=== PATIENT | female | born 1925 | race Caucasian/White ===

== ENCOUNTER 2016-04-23 13:10 | Observation (INO) | payer MEDICARE, MEDICAID ==
[~2016-04-23 13:10] MED LIST: ACET500C PO; ACET650T12 PO; ASPI81TA85 PO; CALC600T3 PO; EYECAP PO; FISH1000 PO; FISH300C PO; HYDR200T3 PO; LEVO125T3 PO; LIDO1OIN2 TOP; LIDO5OI TOP; LUTE6TAB2 PO; Meclizine Hcl PO; OCUVTA PO; PERC5TAB6 PO; SYST0.3G OP; SYST0.4D2 OD; SYST0.4D2 OU; SYSTSOL8 OP; SYSTSOL8 OS; TRAM50TA2 PO; TYLE325T5 PO; VITA100037 PO; VITA500T88 PO
[2016-04-23] MEDS ORDERED: ONDANSETRON 4MG/2ML VIAL (J2405) As Ordered ONE ×2 (13:47→17:04)
[2016-04-23] MEDS ORDERED: MORPHINE 2 MG/ML 1ML SYRINGE As Ordered ONE ×3 (13:47→17:04)
[2016-04-23 14:17] LABS: INR 0.96
[2016-04-23 14:26] LABS: ALBUMIN 3.9 GM/DL (3.2-5.2); ALBUMIN/GLOBULIN RATIO 1.34 (1.00-1.93); ALKALINE PHOSPHATASE 104 U/L (45-117); ALT/SGPT 10 U/L (12-78); ANION GAP 9 MEQ/L (8-16); AST/SGOT 13 U/L (15-37); BILIRUBIN,DIRECT 0.3 MG/DL (0.0-0.2); BILIRUBIN,TOTAL 1.2 MG/DL (0.2-1.0); BLOOD UREA NITROGEN 22 MG/DL (7-18); CALCIUM LEVEL 9.6 MG/DL (8.8-10.2); CARBON DIOXIDE LEVEL 30 MEQ/L (21-32); CHLORIDE LEVEL 100 MEQ/L (98-107); CREATININE FOR GFR 0.53 MG/DL (0.55-1.02); GLOMERULAR FILTRATION RATE > 60.0 (>32); GLUCOSE, FASTING 101 MG/DL (83-110); POTASSIUM SERUM 4.7 MEQ/L (3.5-5.1); SODIUM LEVEL 139 MEQ/L (136-145); TOTAL PROTEIN 6.8 GM/DL (6.4-8.2)
[2016-04-23 14:33] LABS: FREE T4 1.44 NG/DL (0.76-1.46)
[2016-04-23 14:49] LABS: BASO % 0.3 % (0.0-1.0); EOS # 1.3 K/mm3 (0.0-0.50); EOS % 24.6 % (0.0-3.0); LARGE UNSTAINED CELL # 0.1 K/mm3 (0.0-0.4); LARGE UNSTAINED CELL % 1.4 % (0.0-4.0); LYMPH # 0.8 K/mm3 (1.5-4.5); LYMPH % 15.3 % (24.0-44.0); MEAN CORPUSCULAR HEMOGLOBIN 28.3 pg (27.0-33.0); MEAN CORPUSCULAR HGB CONC 34.8 g/dl (32.0-36.5); MEAN CORPUSCULAR VOLUME 81.3 fl (80.0-96.0); MONO # 0.3 K/mm3 (0.0-0.8); MONO % 6.4 % (0.0-5.0); NEUTROPHILS # 2.7 K/mm3 (1.8-7.7); NEUTROPHILS % 52.1 % (36.0-66.0); PLATELET COUNT, AUTOMATED 118 k/mm3 (150-450); RED CELL DISTRIBUTION WIDTH 13.8 % (11.5-14.5); WHITE BLOOD COUNT 5.1 K/mm3 (4.0-10.0)
[2016-04-23] MEDS ORDERED: ZOSYN 3.375 GM VIAL (J2543) As Ordered ONE (15:13)
[2016-04-23] MEDS ORDERED: GASTROGRAFIN SOLUTION 30ML (Q9963) As Ordered ONE (15:13)
--- NOTE | 2016-04-23 16:01 | REP ---
Abdominal series: Four views. History: Abdominal pain. Findings: Upright chest radiograph demonstrates aortic valve replacement. EKG monitoring electrodes are seen. There is no evidence of infiltrate or free subdiaphragmatic air. Heart is enlarged as before. Supine and upright views of the abdomen demonstrate partial collapse of wedging at T12. There is air and stool in a nondistended colon. No large or small bowel dilation is seen. No significant air fluid level is noted. There are pins in the right hip. Impression: Cardiomegaly postaortic valve replacement. No acute abdominal abnormality. Signed by Franklin Lew MD 04/23/2016 04:03 P
[2016-04-23] MEDS ORDERED: ISOVUE-370 76% 100ML VIAL (Q9967) As Ordered ONE (16:39)
--- NOTE | 2016-04-23 19:19 | CR ---
DATE OF CONSULTATION: 04/23/2016 REASON FOR CONSULTATION: Abdominal pain. HISTORY OF PRESENT ILLNESS: The patient is an 89-year-old female who has had some chronic back pain issues, as well as osteoarthritis of numerous areas including her back, hips, knees, etc. She has had attempted colonoscopies by Dr. Zamorano in the past. Unfortunately, because of significant diverticulosis was not able to complete this; however, did have some followup barium enemas and those have been done a few years ago showing diverticulosis with a redundant colon but no evidence of masses or lesions. The patient presents today because of what appears to be generalized malaise, generalized pain, discomfort, and they were concerned at the sisters' house whether there was some element of diverticulosis or diverticulitis. The patient presents here to the emergency room with a normal white count 5.1, not anemic and with a CT scan which shows some diverticulosis, stool throughout the colon, and somewhat distended bladder. She does have when I feel is probably developing portal hypertension with some very large splenic varices/perigastric varices. There may be some edema in the gallbladder fossa which may be related to this portal hypertension. Her abdominal pain she describes is all across her abdomen, but mostly her back that is bothering her more. She has not had any acholic stools. No bilirubinuria, no evidence of pancreatitis. PAST MEDICAL HISTORY: Her past medical history is significant for history of dementia, history of hypothyroidism, history of rheumatoid arthritis, history of humerus fracture, hip fracture, and also chronic back pain discomfort. MEDICATIONS: Levothyroxine, hydroxychloroquine, some bowel care, calcium and multivitamins. PHYSICAL EXAMINATION: GENERAL: Her physical exam reveals a very emaciated 89-year-old who looks stated age. HEENT: Is unremarkable. LUNGS: Clear anteriorly. HEART: Regular. ABDOMEN: Softly distended. She has some mild discomfort and tenderness throughout but this is not severe and not rebound. No guarding. EXTREMITIES: Warm, well-perfused. Has obvious changes with rheumatoid arthritis of her hands bilaterally. IMPRESSION AND PLAN: Abdominal pain may be secondary to some mild constipation issues, may have been from some urinary retention issues. She has a Ellsworth catheter in place and she seems "more comfortable" at this point. It is hard to know if this is radiation of pain from some other etiology, i.e., back, but she definitely has some amount of constipation at this point, and aggressive bowel regime is probably reasonable. I would recommend followup lab work in the morning. You can start her on a clear liquid diet now and progress it as tolerated over the ensuing 24 hours. Otherwise, no surgical intervention is necessary at this time. Unfortunately with her developing portal hypertension with her gallstones present, if she develops an episode of acute cholecystitis in the future I would recommend percutaneous drainage at most and would not recommend operative intervention for this. Also does increase her risk for operative intervention for an intra-abdominal process.
[2016-04-23] MEDS ORDERED: ACET650S3 PR (19:47)
[2016-04-23] MEDS ORDERED: APAP325T PO (19:47)
[2016-04-23] MEDS ORDERED: MILKSUS PO (19:47)
[2016-04-23] MEDS ORDERED: SYST1SOL OU (19:47)
[2016-04-23] MEDS ORDERED: LORT5TAB PO (19:47)
[2016-04-23] MEDS ORDERED: PROC5TA PO (19:47)
[2016-04-23] MEDS ORDERED: ENEMENE6 PR (19:47)
[2016-04-23] MEDS ORDERED: REST0.05 OU (19:47)
[2016-04-23] MEDS ORDERED: VITA200016 PO (19:47)
[2016-04-23] MEDS ORDERED: AMOX500C PO (19:47)
[2016-04-23] MEDS ORDERED: LEVO137T2 PO (19:47)
[2016-04-23] MEDS ORDERED: DULC10SU2 PR (19:47)
[2016-04-23] MEDS ORDERED: ACETAMINOPHEN TAB 650MG DOSE (2X325MG) PO PRN (20:30)
[2016-04-23] MEDS ORDERED: ONDANSETRON 4MG/2ML VIAL (J2405) IV PRN (20:30)
[2016-04-23] MEDS ORDERED: NORCO, ANEXSIA 5/325MG TABLET (HYDROcodone/ACETAMINOPHEN) PO PRN (20:30)
[2016-04-23] MEDS ORDERED: LIDOCAINE 5% OINT 30 GM TOP PRN (20:30)
[2016-04-23] MEDS ORDERED: ONDANSETRON 4 MG TAB (S0181) PO PRN (20:30)
--- NOTE | 2016-04-23 20:53 | HPEPDOC ---
Medical History and Physical Date of Admission 04/23/2016 History and Physical HISTORY AND PHYSICAL Date of admission: 04/23/2016 PCP: Unknown Chief complaint: Abdominal pain HPI: 89-year-old female with irritable bowel syndrome, hypothyroidism, dementia , subdural hematoma in 2014, history of aortic valve replacement, rheumatoid arthritis who presented from [facility] with abdominal pain. The patient has difficulty giving a chronologic history. However, she is able to tell me that she has had "heavy and tight pain" for some time now. Initially she tells me it was for weeks, but later she told me was for years. She states that it's located in her stomach and her lower back, and she notes that her stomach has been getting bigger. She is not sure when her last bowel movement was, but she knows it is been a while. She says it hurts when she pulls her clothes on. Most of her history is obtained through chart review, as well as conversation with the other sister that was present at the bedside, as the patient's baseline dementia makes it difficult for her to participate in the interview. Past medical history: Irritable bowel syndrome, hypothyroidism, dementia, subdural hematoma in 2014, rheumatoid arthritis Past surgical history: Aortic valve replacement, appendectomy, tonsillectomy, lumbar laminectomy Family history: Unknown Social history: The patient is a [employer]. She currently lives at [facility]. She does not drink, smoke, or use any drugs. Allergies: No known drug allergies Review of systems: The patient was not able to participate in a full review of systems secondary to her dementia. She does report abdominal and back pain as mentioned above. She also reports abdominal distention. Home meds: See below Physical exam: Vital signs: Blood pressure 109/60, HR 81, temperature 97.8, O2 sat 96% on 2 L, RR 16 Gen.: awake, alert, no acute distress Eyes: Extraocular movements intact, normal sclera ENT: Moist mucous membranes Cardiovascular: RRR, no murmurs rubs or gallops Lungs: clear to auscultation bilaterally, no rales, rhonchi, or wheeze Abdomen: Soft, normal BS, distended, diffuse TTP Extremities: No peripheral edema Neuro: alert and oriented to person only; knows she is somewhere where doctors help people but didn't know it was a hospital, thinks it is the "year after last year," normal speech, no focal deficits; per the sister with her, she is at her baseline mental status Psych: Normal mood with congruent affect Labs and radiology: See below CBC, BMP, coags, lipase are within normal limits TSH is high, but free T4 is within normal limits. T bili 1.2 CT of the abdomen and pelvis shows portal hypertension with varices, cholelithiasis, a fatty infiltrate of the liver, left colonic diverticulosis Assessment and plan: 89-year-old female with irritable bowel syndrome, hypothyroidism, dementia, subdural hematoma in 2015, history of aortic valve replacement, rheumatoid arthritis who presented from [facility] with abdominal pain. She is admitted with constipation. 1. Abdominal pain and constipation: CT of the abdomen and pelvis does not reveal any acute problems. The patient was evaluated by Dr. Melendez in the ER, he feels that she does not have a surgical abdomen, and needs a really good bowel cleanout. I will start her on MiraLAX and Colace, as well as a gallon of GoLYTELY. She'll have a clear liquid diet with IV fluids. 2. Hypothyroidism: Continue home Synthroid 3. Rheumatoid arthritis: Continue home Plaquenil 4. Dementia: The patient is oriented only to self. Per the sister who is at the bedside, this is her baseline mental status. 5. History of aortic valve replacement: Continue home aspirin. DVT prophylaxis: SCDs Dispo: Place in observation on the service of Dr. Morley Vital Signs see above Laboratory Data Labs 24H Laboratory Tests 2 04/23/16 13:56: Activated Partial Thromboplast Time 23.0L, Aspartate Amino Transf (AST/SGOT) 13L , Alanine Aminotransferase (ALT/SGPT) 10L, Alkaline Phosphatase 104, Total Bilirubin 1.2H, Direct Bilirubin 0.3H, Albumin 3.9, Albumin/Globulin Ratio 1.34 , Anion Gap 9, Calcium Level 9.6, Free Thyroxine 1.44, Glomerular Filtration Rate > 60.0, Lipase 84, Prothromb Time International Ratio 0.96, Prothrombin Time 12.9, Thyroid Stimulating Hormone (TSH) 7.270H, Total Protein 6.8 04/23/16 14:38: White Blood Count 5.1, Red Blood Count 4.80, Hemoglobin 13.6, Hematocrit 39.1, Mean Corpuscular Volume 81.3, Mean Corpuscular Hemoglobin 28.3, Mean Corpuscular Hemoglobin Concent 34.8, Red Cell Distribution Width 13.8, Platelet Count 118L, Neutrophils (%) (Auto) 52.1, Lymphocytes (%) (Auto) 15.3L, Monocytes (%) (Auto) 6.4H, Eosinophils (%) (Auto) 24.6H, Basophils (%) (Auto) 0.3, Neutrophils # (Auto) 2.7, Lymphocytes # (Auto) 0.8L, Monocytes # (Auto) 0.3 , Eosinophils # (Auto) 1.3H, Basophils # (Auto) 0.0, Large Unclassified Cells # 0.1, Large Unclassified Cells % 1.4 CBC/BMP Laboratory Tests 04/23/16 13:56 04/23/16 14:38 Red Blood Count 4.80, Mean Corpuscular Volume 81.3, Mean Corpuscular Hemoglobin 28.3, Mean Corpuscular Hemoglobin Concent 34.8, Red Cell Distribution Width 13.8 , Neutrophils (%) (Auto) 52.1, Lymphocytes (%) (Auto) 15.3 L, Monocytes (%) ( Auto) 6.4 H, Eosinophils (%) (Auto) 24.6 H, Basophils (%) (Auto) 0.3, Neutrophils # (Auto) 2.7, Lymphocytes # (Auto) 0.8 L, Monocytes # (Auto) 0.3, Eosinophils # (Auto) 1.3 H, Basophils # (Auto) 0.0 Home Medications Scheduled (Systane Gel 0.4-0.3 %) 1 Rodney Rodney 1 RODNEY OD QID (Restasis) 0.05 % Emu 1 DROP OU BID Ascorbic Acid (Vitamin C) 500 Mg Tab 500 MG PO DAILY Aspirin (Aspir-81) 81 Mg Tab 81 MG PO DAILY Calcium Carbonate (Calcium Carbonate) 600 Mg Tab 600 MG PO BID Fish Oil (Fish Oil) 1,000 Mg Cap 1,000 MG PO DAILY Hydroxychloroquine Sulfate (Hydroxychloroquine Sulfat) 200 Mg Tab 200 MG PO DAILY Levothyroxine Sodium (Synthroid) 137 Mcg Tab 137 MCG PO DAILY Multivitamins (I-Joselyn) 1 Tab Tab 1 TAB PO BID Polyethylene Glycol (Systane 0.4-0.3 %) 15 Ml Mally 1 DROP OU QID Vegetable Enzyme (Lutein) 6 Mg Tab 6 MG PO BID Vitamin D (Vitamin D) 2,000 Unit Cap 2,000 UNIT PO DAILY Scheduled PRN (Lortab 5-325 mg) 1 Tab Tab 1 TAB PO Q4H PRN PRN PAIN (Enema Disposable) 1 Paul Paul 1 PAUL OR DAILY PRN PRN CONSTIPATION Acetaminophen (Apap) 325 Mg Tab 650 MG PO Q4H PRN PRN PAIN Acetaminophen (Acetaminophen) 650 Mg Sup 650 MG OR Q4H PRN PRN PAIN OR FEVER Amoxicillin (Amoxicillin) 500 Mg Cap 2,000 MG PO PRN PRN PRN dental visits Bisacodyl (Dulcolax) 10 Mg Sup 10 MG OR DAILY PRN PRN CONSTIPATION Lidocaine HCl (Lidocaine 5% Ointment) 1 Dose/35.44 Gm Oint 1 DOSE TOP DAILY PRN PRN PAIN APPLIED TO RIGHT SHOULDER Milk Of Magnesia (Milk of Magnesia) 1,200 Mg/15 Ml Fannie 30 ML PO DAILY PRN PRN CONSTIPATION Prochlorperazine (Prochlorperazine Maleate) 5 Mg Tab 5 MG PO Q6H PRN PRN NAUSEA Allergies Coded Allergies: No Known Allergies (Unverified , 12/16/14) AZALIA GALINDO Apr 23, 2016 20:53
[2016-04-23] MEDS ORDERED: GOLYTELY SOLN 4000 ML BTL PO ONE (22:30)
[2016-04-23 22:35] VITALS: BP 115/71
[2016-04-23] MEDS: DOCUSATE SODIUM 100 MG CAP PO SCH (23:33)
[2016-04-23] MEDS: OCUVITE 1 TAB PO SCH (23:33)
[2016-04-23] MEDS: NS 1,000 ML IV SCH (23:33)
[2016-04-23] MEDS: MIRALAX *UNIT DOSE* 17GM PACKET PO SCH (23:36)
[2016-04-24 05:32] LABS: BASO % 0.1 % (0.0-1.0); EOS # 0.5 K/mm3 (0.0-0.50); EOS % 11.1 % (0.0-3.0); LARGE UNSTAINED CELL # 0.1 K/mm3 (0.0-0.4); LARGE UNSTAINED CELL % 1.8 % (0.0-4.0); LYMPH # 0.4 K/mm3 (1.5-4.5); LYMPH % 9.4 % (24.0-44.0); MEAN CORPUSCULAR HEMOGLOBIN 27.5 pg (27.0-33.0); MEAN CORPUSCULAR HGB CONC 33.6 g/dl (32.0-36.5); MEAN CORPUSCULAR VOLUME 82.1 fl (80.0-96.0); MONO # 0.4 K/mm3 (0.0-0.8); MONO % 9.1 % (0.0-5.0); NEUTROPHILS % 68.6 % (36.0-66.0); PLATELET COUNT, AUTOMATED 116 k/mm3 (150-450); RED CELL DISTRIBUTION WIDTH 13.9 % (11.5-14.5); WHITE BLOOD COUNT 4.3 K/mm3 (4.0-10.0)
--- NOTE | 2016-04-24 05:37 | REP ---
CT STUDY OF THE ABDOMEN AND PELVIS WITH IV AND ORAL CONTRAST: History: Diverticulitis. Comparison CT study is from May 24, 2012. CT contrast dose: 100 ml of Isovue 370 is administered intravenously by auto injector. CT findings: Preliminary digital label stamper radiograph shows gas distension of the rectum. There is mild to moderate splenomegaly with the spleen measuring up to 15.6 cm. The spleen is homogeneous. No focal hepatic lesion is seen. There is some fatty infiltration of the liver. No focal hepatic mass lesion is seen. Two large gallstones are seen in the gallbladder. The pancreas is somewhat atrophic. Mildly dilated main pancreatic duct is seen measuring up to 6.7 mm. No pancreatic mass lesion is observed. The splenic vein is prominent and tortuous. Question portal hypertension. The kidneys enhance symmetrically and are morphologically intact. There is moderate stool throughout the colon. No uterine or adnexal abnormality is seen. There are pins in the right hip. Gaseous distension of the rectum is seen. There is left colonic diverticulosis without CT evidence of diverticulitis. No abdominal wall defect is seen. Impression: 1. Splenomegaly with dilated tortuous portal and splenic veins, question portal hypertension. No ascites. 2. Cholelithiasis. 3. Fatty infiltration of the liver. 4. Left colonic diverticulosis. Signed by Franklin Lew MD 04/24/2016 08:32 A
[2016-04-24 05:50] LABS: ALBUMIN 3.4 GM/DL (3.2-5.2); ALBUMIN/GLOBULIN RATIO 1.03 (1.00-1.93); ALKALINE PHOSPHATASE 105 U/L (45-117); ALT/SGPT 11 U/L (12-78); ANION GAP 10 MEQ/L (8-16); AST/SGOT 11 U/L (15-37); BILIRUBIN,TOTAL 1.6 MG/DL (0.2-1.0); BLOOD UREA NITROGEN 19 MG/DL (7-18); CALCIUM LEVEL 8.5 MG/DL (8.8-10.2); CARBON DIOXIDE LEVEL 27 MEQ/L (21-32); CHLORIDE LEVEL 98 MEQ/L (98-107); CREATININE FOR GFR 0.59 MG/DL (0.55-1.02); GLOMERULAR FILTRATION RATE > 60.0 (>32); GLUCOSE, FASTING 118 MG/DL (83-110); MAGNESIUM LEVEL 3.1 MG/DL (1.8-2.4); POTASSIUM SERUM 4.5 MEQ/L (3.5-5.1); SODIUM LEVEL 135 MEQ/L (136-145); TOTAL PROTEIN 6.7 GM/DL (6.4-8.2)
[2016-04-24] MEDS ORDERED: LEVOTHYROXINE 0.137 MG TAB (137MCG) PO SCH (06:00)
[2016-04-24 08:00] VITALS: BP 96/54
[2016-04-24] MEDS ORDERED: VITAMIN D 1,000 INTERNATIONAL UNITS TABLET PO SCH (09:00)
[2016-04-24] MEDS ORDERED: HYDROXYCHLOROQUINE 200 MG TAB PO SCH (09:00)
[2016-04-24] MEDS ORDERED: ASPIRIN 81 MG ENTERIC TAB PO SCH (09:00)
[2016-04-24] MEDS: MIRALAX *UNIT DOSE* 17GM PACKET PO SCH (09:08)
[2016-04-24] MEDS: DOCUSATE SODIUM 100 MG CAP PO SCH (09:09)
[2016-04-24] MEDS: OCUVITE 1 TAB PO SCH (09:09)
[2016-04-24] MEDS: NS 1,000 ML IV SCH (10:52)
--- NOTE | 2016-04-24 18:15 | DSES ---
DATE OF ADMISSION: 04/23/2016 DATE OF DISCHARGE: 04/24/2016 PRIMARY CARE PHYSICIAN: Unknown. REFERRING PHYSICIAN: None. CONSULTING PHYSICIAN: Stevan Melendez MD CONDITION ON DISCHARGE: Stable. FINAL DIAGNOSIS: 1. Abdominal pain secondary to constipation. PROCEDURES: None. HISTORY OF PRESENT ILLNESS: The patient is an 89-year-old female with a past medical history of irritable bowel syndrome, hypothyroidism, dementia, subdural hematoma, in 2015 history of aortic valve replacement, rheumatoid arthritis, who presented from [facility] with abdominal pain. The patient has difficulty giving a chronological history; however, she is able to tell me that she had heavy and tight pain. In the emergency room, the patient had a Ellsworth catheter placed, which had some relief of her abdominal pain. Upon questioning, the patient still had mild abdominal pain and significant constipation. The patient was admitted for severe constipation and surgery was consulted. HOSPITAL COURSE: 1. Abdominal pain and constipation. CT of the abdomen revealed no acute abnormalities. Surgery was consulted in the emergency room. It was discussed that the patient did not have a surgical abdomen. The patient did have significant constipation. She was given several stool softeners including MiraLAX, Colace and she was given GoLYTELY. The patient had a large volume bowel movement overnight, several episodes this morning. She did not complain of any abdominal pain. 2. Hypothyroidism. Continue with home Synthroid. 3. Rheumatoid arthritis. Continue with Plaquenil. 4. Dementia. The patient is oriented only to herself. 5. History of aortic valve replacement. Continue home aspirin. 6. Deep vein thrombosis (DVT) prophylaxis. Continue with the compression devices. DISCHARGE MEDICATIONS: The patient has been discharged with the following: - acetaminophen 650 mg by mouth every 4 hours as needed for pain - vitamin C 500 mg by mouth daily - aspirin 81 mg by mouth daily - Dulcolax 10 mg per rectum daily as needed for constipation - calcium carbonate 600 mg by mouth twice a day - disposable enema per rectum daily as needed for constipation - fish oil 1000 mg by mouth daily - hydroxychloroquine 200 mg by mouth daily - levothyroxine 137 mcg by mouth daily - lidocaine one dose topically daily as needed for pain - Milk of Magnesium 30 mL by mouth daily as needed for constipation - multivitamins one tab by mouth twice a day - polyethylene glycol one drop in each eye four times a day - Restasis one drop in each twice a day - Systane one drop in each eye four times a day - vegetable enzyme 6 mg by mouth twice a day - vitamin D 2000 units by mouth daily DISCHARGE INSTRUCTIONS: The patient has been advised to followup with her primary care provider within the next one to two weeks. She has been advised to remain compliant with treatment with her medications and return to the emergency room if she experiences any problems. TIME SPENT ON DISCHARGE: 35 minutes.
--- NOTE | 2016-04-25 23:27 | EDDOCDS ---
Nurse's Notes [facility] Name: Sr Hensley Age: 89 yrs Sex: Female : 1925 Arrival Date: 04/23/2016 Time: 13:10 Bed 18 Private MD: Diagnosis: Generalized abdominal pain;Constipation;Intervertebral disc disorders with radiculopathy, lumbar region-right L3 Presentation: 04/23 13:20 Presenting complaint: Patient states: states back pain has been increased for approx 1 jf3 month now. Abdomen feels bloated with pain. Pt unable to recall last BM EMS states: Pt from [facility]. Nurses stating pt having increased back pain and abdominal distention. Acute neurological deficits are not present. Mechanism of Injury: No Mechanism of Injury. Suicide/Homicide risk assessment- the patient denies having any suicidal and/or homicidal ideations and does not present with any other emotional, behavioral or mental health complaints. 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 13:20 Acuity: SEVEN Level 3 jf3 13:20 Method Of Arrival: Ambulance 3 13:28 Transition of care: patient was received from [facility]. jf3 14:10 Adult Sepsis Screening: The patient does not have new or worsening altered mentation. jo3 Patient's respiratory rate is less than 22. Systolic blood pressure is greater than 100. Patient has a qSOFA score of 0- Negative Sepsis Screen. Triage Assessment: 13:28 General: Appears uncomfortable, Behavior is anxious, cooperative. Pain: Location: low jf3 back area and abdomen. Pain: Pain currently is 9 out of 10 on a pain scale. The patient is triaged at the bedside. See Assessment in Nurses Notes section of ED record. Neurological: Level of Consciousness is awake, Oriented to Pt able to give partial date and knows she is in a hospital. Unable to give current date. Historical: - Allergies: no known allergies; - Home Meds: 1. Compazine 5 mg Oral tab 1 tab every 6 hours as needed for Nausea and Vomiting 2. Lignum 5-325 mg Oral tab 1 tab every 4 hours as needed for Pain (Last dose: 04/23/2016 09:10) 3. Restasis 0.05 % ophthalmic dpet 1 drop 2 times per day (Last dose: 04/23/2016 10:06) 4. Systane 0.4-0.3 % ophthalmic drop 1 drop four times a day for Dry Eye (Last dose: 04/23/2016 10:06) 5. amoxicillin 500 mg Oral cap 4 caps prior to dental work 6. Systane Gel 0.3 % ophthalmic gel 1 drop four times a day (Last dose: 04/23/2016 10:06) 7. Vitamin D3 2,000 unit oral tab 1 tab daily (Last dose: 04/23/2016 10:05) 8. calcium oral 600 mg twice a day 1 tab daily (Last dose: 04/23/2016 10:05) 9. levothyroxine 137 mcg Oral tab 1 tab once daily for Hypothyroidism (Last dose: 04/23/2016 10:06) 10. Tylenol 325 mg oral tab 2 tabs every 4 hours as needed 11. acetaminophen 650 mg Rectal supp 1 suppository every 4 hours as needed 12. Milk of Magnesia Oral 10 mL daily as needed for Constipation 13. Dulcolax (bisacodyl) 10 mg Rectal supp 1 suppository daily as needed for Constipation 14. Enema Disposable 19-7 gram/118 mL rectal enem daily as needed for Constipation 15. Ascorbic Acid with Shellie Hips 500 mg oral tab 1 tab daily (Last dose: 04/23/2016 10:05) 16. aspirin 81 mg Oral TbEC 1 tab once daily for CAD (Last dose: 04/23/2016 10:05) 17. Fish Oil 1,000 mg Oral cap 1 cap daily (Last dose: 04/23/2016 10:05) 18. hydroxychloroquine 200 mg oral tab 1 tab once daily (Last dose: 04/23/2016 10:05) 19. lidocaine ointment as needed for right shoulder pain 20. lutein 6 mg oral cap twice a day (Last dose: 04/23/2016 10:05) 21. I-Joselyn 1,000 unit-200 mg-60 unit-2 mg oral tab 1 tab twice a day (Last dose: 04/23/2016 10:05) - PMHx: Cataracts; Irritable bowel syndrome; Thyroid problem; Diverticulosis; DDD L-spine with right L3 nerve root compression; - PSHx: Aortic Valve Replacement, Mechanical; Colonoscopy; Laminectomy. lumbar; Appendectomy; Tonsillectomy; trigger thumb surgery; intraocular lens; colon polypectomies; - The history from nurses notes was reviewed: and elements of the historical information I have obtained differs from that reported to nursing. - Social history: Smoking status: Patient states was never smoker of tobacco. No barriers to communication noted, The patient speaks fluent Irish, Speaks appropriately for age. - : The pt / caregiver states he / she is not on anticoagulants. Home medication list is obtained from the facility JUN. - Hospitalizations: : No recent hospitalization is reported. - Exposure Risk Screening:: None identified. - Immunization history:: All immunizations up-to-date. - Family history: Not pertinent. - Social history:: the patient is a non-smoker, the patient does not drink alcohol. Screenin:27 Screening information is obtained from residence staff. Fall risk: At risk due to age, jo3 immobility, The following interventions are performed due to a positive Fall Risk Screen: Fall Risk is added to Special Handling on the patient Summary Screen. A Fall Risk Bracelet was applied to the patient. Side Rails are placed in the up position. A [employer] is given with instruction to call for help when getting out of bed. Assistance ADL's: Requires assistance with meal preparation, this assistance is provided by residence staff, bathing, assistance is provided by residence staff, dressing, assistance is provided by residence staff, toileting, assistance is provided by residence staff, housework, assistance is provided by residence staff, medication administration, assistance is provided by residence staff. Advance Directives: There is no active DNR order. home support is adequate. 14:01 Abuse/DV Screen: The patient / caregiver reports he/she is: not in a situation that jo3 causes fear, pain or injury. Nutritional screening: No deficits noted. Assessment: 14:01 General: Appears in no apparent distress, Behavior is appropriate for age, cooperative, jo3 pleasant. Neurological: Level of Consciousness is awake, alert, Oriented to person, place. EENT: No deficits noted. Cardiovascular: Rhythm is sinus rhythm No ectopy. Chest pain is denied. Respiratory: Airway is patent Respiratory effort is even, unlabored, Breath sounds are diminished in left posterior lower lobe and right posterior lower lobe. GI: Abdomen is distended, Bowel sounds hypoactive in right upper quadrant, left upper quadrant, right lower quadrant and left lower quadrant Abd is soft X 4 quads Abd is tender to palpation in suprapubic area and left lower quadrant Reports. Derm: Skin is pink, warm & dry. Musculoskeletal: Reports pain in abdomen and low back area radiation to RAYMUNDO LE. 14:16 Reassessment: Pt reported after assessment that she keeps feeling the urge to void and jo3 has not been able to. Bladder scan completed for approx 350cc of urine. Pt attempted to void on bedpan 15 minutes prior to scan. Provider notified . 15:30 General: Appears uncomfortable, Behavior is appropriate for age, cooperative, pleasant. jo3 General: Additional Morphine administered for pain in low back and right leg. Continuing to monitor . Neurological: No deficits noted. Level of Consciousness is awake, alert, Oriented to person, place. Cardiovascular: Rhythm is sinus rhythm Chest pain is denied. Respiratory: Airway is patent Respiratory effort is even, unlabored. Derm: No deficits noted. Skin is pink, warm & dry. 17:00 General: Pt returned from CT. Reports nausea and increased pain. Pt also reports urge ld5 to urinate. Pt medicated per orders for pain and nausea. Pt assisted with bedpan. Pt unable to urinate. Bladder scan results were 424 ml. Provider made aware and verbalized silverio order. 18:30 General: Dr. Melendez in to assess pt. ld5 19:15 General: Appears in no apparent distress, Behavior is appropriate for age. Pain: ko2 Location: abdomen. Neurological: Level of Consciousness is awake. Respiratory: Airway is patent Respiratory effort is even, unlabored. GI: Abdomen is distended, Bowel sounds present X 4 quads. hypoactive in right upper quadrant, left upper quadrant, right lower quadrant and left lower quadrant Abd is soft Abd is tender to palpation. 20:15 General: Appears in no apparent distress, Behavior is appropriate for age. ko2 Neurological: Level of Consciousness is awake. Respiratory: Airway is patent Respiratory effort is even, unlabored. Derm: Skin is pink, warm & dry. 22:09 General: Appears in no apparent distress, Behavior is appropriate for age, cooperative. ko2 Neurological: Level of Consciousness is awake. Respiratory: Airway is patent Respiratory effort is even, unlabored. Derm: Skin is pink, warm & dry. Vital Signs: 13:29 BP 157 / 71 (auto/); jo3 13:30 Weight 51.71 kg; Height 5 ft. 3 in. (160.02 cm); jo3 13:30 BP 157 / 71; Pulse 77; Resp 16; Temp 99.4(TE); Pulse Ox 96% on R/A; Pain 9/10; sew 13:44 Temp 97.8(O); jo3 13:44 BP 143 / 63 (auto/); jo3 13:44 Pulse 78 MON; Pulse Ox 97% ; jo3 13:59 BP 125 / 57 (auto/); jo3 13:59 Pulse 80 MON; Pulse Ox 97% ; jo3 14:29 BP 138 / 67 (auto/); jo3 14:29 Pulse 76 MON; Pulse Ox 98% ; jo3 14:44 BP 111 / 55 (auto/); jo3 14:44 Pulse Ox 98% ; jo3 14:59 BP 112 / 59 (auto/); jo3 14:59 Pulse 78 MON; Pulse Ox 98% ; jo3 15:14 BP 121 / 61 (auto/); jo3 15:14 Pulse Ox 98% ; jo3 15:29 BP 109 / 58 (auto/); jo3 15:29 Pulse 78 MON; Pulse Ox 98% ; jo3 15:44 BP 106 / 68 (auto/); jo3 15:44 Pulse 72 MON; Pulse Ox 99% ; jo3 15:59 BP 107 / 68 (auto/); jo3 15:59 Pulse 72 MON; Pulse Ox 99% ; jo3 16:14 BP 109 / 67 (auto/); jo3 16:14 Pulse 74 MON; Pulse Ox 99% ; jo3 16:29 BP 115 / 63 (auto/); jo3 16:29 Pulse 76 MON; Pulse Ox 99% ; jo3 16:44 BP 126 / 62 (auto/); jo3 16:44 Pulse 78 MON; Pulse Ox 98% ; jo3 17:14 Pulse 72 MON; Pulse Ox 98% ; jo3 17:14 BP 138 / 67 (auto/); Temp 98.1(TE); jo3 17:29 BP 121 / 56 (auto/); jo3 17:29 Pulse 72 MON; Pulse Ox 98% ; jo3 17:44 BP 108 / 57 (auto/); jo3 17:44 Pulse 72 MON; Pulse Ox 97% ; jo3 17:59 BP 103 / 58 (auto/); jo3 17:59 Pulse 74 MON; Pulse Ox 98% ; jo3 18:14 BP 101 / 56 (auto/); jo3 18:14 Pulse 72 MON; Pulse Ox 96% ; jo3 18:29 BP 106 / 55 (auto/); jo3 18:29 Pulse 76 MON; Pulse Ox 96% ; jo3 18:44 BP 110 / 62 (auto/); jo3 18:44 Pulse 78 MON; jo3 18:59 BP 109 / 60 (auto/); ko2 19:00 Pulse 78 MON; Pulse Ox 96% ; ko2 19:14 BP 110 / 58 (auto/); ko2 19:14 Pulse 78 MON; Pulse Ox 96% ; ko2 19:29 BP 156 / 69 (auto/); ko2 19:30 Pulse 84 MON; ko2 19:44 BP 144 / 52 (auto/); ko2 19:45 Pulse 76 MON; ko2 19:59 BP 131 / 63 (auto/); ko2 20:00 Pulse 70 MON; ko2 20:14 BP 120 / 59 (auto/); ko2 20:15 Pulse 72 MON; Pulse Ox 98% ; ko2 20:29 BP 122 / 56 (auto/); ko2 20:29 Pulse 74 MON; Pulse Ox 97% ; ko2 20:44 BP 115 / 55 (auto/); ko2 20:45 Pulse 78 MON; Pulse Ox 97% ; ko2 21:14 BP 130 / 62 (auto/); Pulse 82; Resp 18; Temp 98; Pulse Ox 97% ; Pain 6/10; ko2 13:30 Body Mass Index 20.19 (51.71 kg, 160.02 cm) jo3 Vitals: 13:28 Log In Time N/A - ambulance arrival. jf3 ED Course: 13:11 Patient visited by Ivy Acosta PCA. ar3 13:11 Patient moved to Waiting ar3 13:11 Patient moved to 18 ar3 13:18 Aung Scott MD is Attending Physician. pc 13:24 Triage Initiated jf3 13:27 The patient / caregiver is instructed regarding the plan of care and ED course. jo3 13:31 Patient visited by Marisabel Lock. sew 13:37 Patient visited by Aung Scott MD. pc 13:58 Basic Metabolic Profile Sent. ld5 13:58 CBC with Diff Sent. ld5 13:58 Lipase Sent. ld5 13:58 Liver Profile Sent. ld5 13:58 Partial Thromboplastin Time Sent. ld5 13:58 Prothrombin Time Profile\E\INR Sent. ld5 13:58 Type & Screen Sent. ld5 13:58 Labs drawn. (by ED staff). Sent per order to lab. ld5 14:01 Inserted saline lock: 20 gauge in right forearm. Labs drawn. jo3 14:12 Bladder Scan completed Results: 350cc. jo3 14:37 Patient name changed from M\S\Anat\S\Shellie\S\ to Sr\S\M\S\Shellie. EDMS 14:40 Straight cath inserted 16 Fr. returned clear yellow urine. Patient tolerated well. jo3 14:42 Patient visited by Vasu Ahn,NIHARIKA. jf3 14:52 Patient visited by Zoraida Reveles,NIHARIKA. jo3 14:54 Patient visited by Zoraida Reveles,NIHARIKA. jo3 15:05 [facility] Payment Agreement was scanned into [employer] and attached to record. mpb 16:21 Abdomen, Flat\E\Upright,PA Chest Returned. EDMS 16:35 Patient visited by Aung Scott MD. pc 17:29 Patient visited by Ani Chávez,NIHARIKA. ld5 17:41 Silverio cath inserted 16 Fr. Balloon inflated. To gravity drainage. returned clear yellow ld5 urine. Patient tolerated well. 18:43 Rae Rasmussen is Hospitalizing Provider. pc 18:56 Suni Mccormick,NIHARIKA is Primary Nurse. ko2 19:03 Patient visited by Med Mistry PCA. kb5 21:48 No procedures done that require assistance. ko2 Administered Medications: 04:00 Drug: Ondansetron 4 mg [ondansetron HCl 2 mg/mL intravenous solution (2 mL)] Route: jo3 IVP; Site: right forearm; 14:00 Drug: NS 0.9% 1000 ml [sodium chloride 0.9 % intravenous solution] Route: IV; Rate: 100 jo3 mL/hr; Site: right forearm; 14:02 Drug: morphine 2 mg [morphine 2 mg/mL intravenous cartridge (1 mL)] Route: IVP; Site: jo3 right forearm; 15:20 Drug: Piperacillin-Tazobactam 3.375 grams [piperacillin-tazobactam 3.375 gram jo3 intravenous solution] Route: IVPB; Infused Over: 30 mins; Site: right forearm; 16:20 Follow up: IV Status: Completed infusion jo3 15:25 Drug: Diatrizoate Meglumine & Sodium 10 ml [diatrizoate meglumine and diat.sodium 66 jo3 %-10 % oral solution (10 mL)] Route: PO; 15:28 Drug: morphine 2 mg [morphine 2 mg/mL intravenous cartridge (1 mL)] Route: IVP; Site: jo3 right forearm; 16:00 Drug: Diatrizoate Meglumine & Sodium 10 ml [diatrizoate meglumine and diat.sodium 66 ld5 %-10 % oral solution (10 mL)] Route: PO; 17:18 Drug: morphine 2 mg [morphine 2 mg/mL intravenous cartridge (1 mL)] Route: IVP; Site: ld5 right wrist; 17:18 Drug: Ondansetron 4 mg [ondansetron HCl 2 mg/mL intravenous solution (2 mL)] Route: ld5 IVP; Site: right wrist; Output: 14:42 Urine: 350.00ml (Straight Cath); Total: 350.00ml. jo3 Order Results: Lab Order: Basic Metabolic Profile; SPEC'M 04/23/16 13:56 Test: GLUCOSE, FASTING; Value: 101; Range: 83-110; Units: MG/DL; Status: F Test: BLOOD UREA NITROGEN; Value: 22; Range: 7-18; Abnormal: Above high normal; Units: MG/DL; Status: F Test: CREATININE FOR GFR; Value: 0.53; Range: 0.55-1.02; Abnormal: Below low normal; Units: MG/DL; Status: F Test: GLOMERULAR FILTRATION RATE; Value: > 60.0; Range: >32; Status: F Test: SODIUM LEVEL; Value: 139; Range: 136-145; Units: MEQ/L; Status: F Test: POTASSIUM SERUM; Value: 4.7; Range: 3.5-5.1; Units: MEQ/L; Status: F Test: CHLORIDE LEVEL; Value: 100; Range: 98-107; Units: MEQ/L; Status: F Test: CARBON DIOXIDE LEVEL; Value: 30; Range: 21-32; Units: MEQ/L; Status: F Test: ANION GAP; Value: 9; Range: 8-16; Units: MEQ/L; Status: F Test: CALCIUM LEVEL; Value: 9.6; Range: 8.8-10.2; Units: MG/DL; Status: F Test Note: ; Units are mL/min/1.73 m2 Chronic Kidney Disease Staging per NKF: Stage I & II GFR >=60 Normal to Mildly Decreased Stage III GFR 30-59 Moderately Decreased Stage IV GFR 15-29 Severely Decreased Stage V GFR <15 Very Little GFR Left ESRD GFR <15 on CAREER AND GUIDANCE COUNSELOR Lab Order: CBC with Diff; SPEC'M 04/23/16 14:38 Test: WHITE BLOOD COUNT; Value: 5.1; Range: 4.0-10.0; Units: K/mm3; Status: F Test: RED BLOOD COUNT; Value: 4.80; Range: 4.00-5.40; Units: M/mm3; Status: F Test: HEMOGLOBIN; Value: 13.6; Range: 12.0-16.0; Units: g/dl; Status: F Test: HEMATOCRIT; Value: 39.1; Range: 36.0-47.0; Units: %; Status: F Test: MEAN CORPUSCULAR VOLUME; Value: 81.3; Range: 80.0-96.0; Units: fl; Status: F Test: MEAN CORPUSCULAR HEMOGLOBIN; Value: 28.3; Range: 27.0-33.0; Units: pg; Status: F Test: MEAN CORPUSCULAR HGB CONC; Value: 34.8; Range: 32.0-36.5; Units: g/dl; Status: F Test: RED CELL DISTRIBUTION WIDTH; Value: 13.8; Range: 11.5-14.5; Units: %; Status: F Test: PLATELET COUNT, AUTOMATED; Value: 118; Range: 150-450; Abnormal: Below low normal; Units: k/mm3; Status: F Test: NEUTROPHILS %; Value: 52.1; Range: 36.0-66.0; Units: %; Status: F Test: LYMPH %; Value: 15.3; Range: 24.0-44.0; Abnormal: Below low normal; Units: %; Status: F Test: MONO %; Value: 6.4; Range: 0.0-5.0; Abnormal: Above high normal; Units: %; Status: F Test: EOS %; Value: 24.6; Range: 0.0-3.0; Abnormal: Above high normal; Units: %; Status: F Test: BASO %; Value: 0.3; Range: 0.0-1.0; Units: %; Status: F Test: LARGE UNSTAINED CELL %; Value: 1.4; Range: 0.0-4.0; Units: %; Status: F Test: NEUTROPHILS #; Value: 2.7; Range: 1.8-7.7; Units: K/mm3; Status: F Test: LYMPH #; Value: 0.8; Range: 1.5-4.5; Abnormal: Below low normal; Units: K/mm3; Status: F Test: MONO #; Value: 0.3; Range: 0.0-0.8; Units: K/mm3; Status: F Test: EOS #; Value: 1.3; Range: 0.0-0.50; Abnormal: Above high normal; Units: K/mm3; Status: F Test: BASO #; Value: 0.0; Range: 0.0-0.2; Units: K/mm3; Status: F Test: LARGE UNSTAINED CELL #; Value: 0.1; Range: 0.0-0.4; Units: K/mm3; Status: F Lab Order: Lipase; [facility]' 04/23/16 13:56 Test: LIPASE; Value: 84; Range: 73-393; Units: U/L; Status: F Lab Order: Liver Profile; SPEC' 04/23/16 13:56 Test: AST/SGOT; Value: 13; Range: 15-37; Abnormal: Below low normal; Units: U/L; Status: F Test: ALT/SGPT; Value: 10; Range: 12-78; Abnormal: Below low normal; Units: U/L; Status: F Test: ALKALINE PHOSPHATASE; Value: 104; Range: 45-117; Units: U/L; Status: F Test: BILIRUBIN,TOTAL; Value: 1.2; Range: 0.2-1.0; Abnormal: Above high normal; Units: MG/DL; Status: F Test: BILIRUBIN,DIRECT; Value: 0.3; Range: 0.0-0.2; Abnormal: Above high normal; Units: MG/DL; Status: F Test: TOTAL PROTEIN; Value: 6.8; Range: 6.4-8.2; Units: GM/DL; Status: F Test: ALBUMIN; Value: 3.9; Range: 3.2-5.2; Units: GM/DL; Status: F Test: ALBUMIN/GLOBULIN RATIO; Value: 1.34; Range: 1.00-1.93; Status: F Lab Order: Partial Thromboplastin Time; 04/23/16 13:56 Test: PARTIAL THROMBOPLASTIN TIME; Value: 23.0; Range: 26.6-37.1; Abnormal: Below low normal; Units: SECONDS; Status: F Lab Order: Prothrombin Time Profile\E\INR; 04/23/16 13:56 Test: PROTHROMBIN TIME; Value: 12.9; Range: 12.3-14.5; Units: SECONDS; Status: F Test: INR; Value: 0.96; Status: F Test Note: ; THERAPUTIC HUMAN INR VALUES INDICATIONS NORMAL RANGES PROPHYLAXIS/TREATMENT OF: VENOUS THROMBOSIS 2.0-3.0 PULMONARY EMBOLISM 2.0-3.0 PREVENTION OF SYSTEMIC EMBOLISM FROM: TISSUE HEART VALVES 2.0-3.0 ACUTE MYOCARDIAL INFARCTION 2.0-3.0 VALVULAR HEART DISEASE 2.0-3.0 ATRIAL FIBRILLATION 2.0-3.0 MECHANICAL VALVES(HIGH RISK) 2.5-3.5 RECURRENT MYOCARDIAL INFARCTION 2.5-3.5 Lab Order: Type & Screen; 04/23/16 13:56 Test: BLOOD TYPE; Value: O POS; Status: F Test: AB SCREEN (INDIRECT VINAYAK)GEL; Value: NEGATIVE; Status: F Lab Order: TSH with Free T4; 04/23/16 13:56 Test: THYROID STIMULATING HORMONE; Value: 7.270; Range: 0.358-3.740; Abnormal: Above high normal; Units: uIU/ML; Status: F Test: FREE T4; Value: 1.44; Range: 0.76-1.46; Units: NG/DL; Status: F Radiology Order: Abdomen, Flat\E\Upright,PA Chest Test: Abdomen, Flat\E\Upright,PA Chest REASON FOR EXAMINATION: Abdomen Pain; Abdominal series: Four views.; ; History: Abdominal pain.; ; Findings: Upright chest radiograph demonstrates aortic valve replacement. EKG; monitoring electrodes are seen. There is no evidence of infiltrate or free; subdiaphragmatic air. Heart is enlarged as before.; ; Supine and upright views of the abdomen demonstrate partial collapse of wedging; at T12. There is air and stool in a nondistended colon. No large or small bowel; dilation is seen. No significant air fluid level is noted. There are pins in; the right hip.; ; Impression:; ; Cardiomegaly postaortic valve replacement. No acute abdominal abnormality.; ; ; Signed by; Franklin Lew MD 04/23/2016 04:03 P; Outcome: 18:43 Decision to Hospitalize by Provider. 21:48 Discharge Assessment: Patient awake, alert and oriented x 3. No cognitive and/or ko2 functional deficits noted. Patient verbalized understanding of disposition instructions. patient administered narcotics - yes. Patient was admitted to the hospital or transferred to another facility. The following High Risk Discharge criteria are identified: None. Admitted to PCU accompanied by nurse, via stretcher, with chart. Condition: stable. Property sent home with patient. 21:50 No special radiology studies were completed. ko2 21:51 Admission hand-off: Report Faxed Fax receipt verified by NIHARIKA lewis PCU. ko2 22:26 Patient left the ED. ko2 Signatures: Dispatcher [employer] EDMS Aung Scott MD MD pc Helmerci, JenniferRN RN jo3 Med Mistry, SLOT MACHINE DEPARTMENT FLOORPERSON SLOT MACHINE DEPARTMENT FLOORPERSON kb5 Ivy Acosta, SLOT MACHINE DEPARTMENT FLOORPERSON SLOT MACHINE DEPARTMENT FLOORPERSON ar3 Ani Chávez,RN RN ld5 Marisabel Lock Kari, RN RN ko2 Vasu Ahn,NIHARIKA RN jf3 Jack Weber, Reg Reg mpb Corrections: (The following items were deleted from the chart) 13:24 13:15 Presenting complaint: jf3 jf3 13:24 13:19 Transition of care: patient was received from [facility]. ld5 jf3 14:15 14:00 Ondansetron 4 mg IVP in right femoral jo3 jo3 14:51 14:41 Urine 350, (Straight Cath), Output Total 350. jf3 jo3 14:52 14:10 Bladder Scan completed Results: 350cc jf3 jo3 : 14:42 Straight cath inserted 16 Fr. returned clear yellow urine. Patient tolerated well jo3 jf3 Chart Complete MTDD
--- NOTE | 2016-04-25 23:27 | EDDOCDS ---
Physician Documentation [facility] Name: Sr Hensley Age: 89 yrs Sex: Female : 1925 Arrival Date: 04/23/2016 Time: 13:10 Bed 18 Private MD: Disposition: 04/23 18:41 Critical Care: Critical care not applicable. pc Disposition: 04/23/16 18:43 Hospitalization ordered by Rae Rasmussen for Inpatient Admission. Preliminary diagnosis are Generalized abdominal pain, Constipation, Intervertebral disc disorders with radiculopathy, lumbar region - right L3. - Bed requested for M PCU. - Status is Inpatient Admission. ko2 - Condition is Stable. - Problem is new. - Symptoms are unchanged. HPI: 13:52 This 89 yrs old Female presents to ER via Ambulance with complaints of pc Abdominal Pain. 13:52 The history is obtained from the patient. The patient presents with abdominal pain, pc that is diffuse. The symptoms began gradually 3 weeks ago, and became worse 3 days ago. Symptoms are ongoing and are constant. She has been complaining about constipation for 3-4 weeks, with increasing abdominal pain. She has chronic low back pain with right L3 radicular pain, for which she is taking opioids. She denies any fevers or chills, change in appetite until today, n/v. She has felt it to be "difficult to take a deep breath" for a week, pointing to her LUQ and saying it hurts from there up to her chest. She denies any sputum production or chest pain., She denies symptoms. At its worst, the symptoms were a 10 out of 10. In the emergency department, the symptoms are a 10 out of 10. The pain is described as "pain". The is primarily located abdomen diffusely. It does not radiate. The patient has not experienced similar symptoms in the past. The patient has been recently seen by their primary care provider, for a routine, regularly scheduled appointment. Historical: - Allergies: no known allergies; - Home Meds: 1. Compazine 5 mg Oral tab 1 tab every 6 hours as needed for Nausea and Vomiting 2. Columbia 5-325 mg Oral tab 1 tab every 4 hours as needed for Pain (Last dose: 04/23/2016 09:10) 3. Restasis 0.05 % ophthalmic dpet 1 drop 2 times per day (Last dose: 04/23/2016 10:06) 4. Systane 0.4-0.3 % ophthalmic drop 1 drop four times a day for Dry Eye (Last dose: 04/23/2016 10:06) 5. amoxicillin 500 mg Oral cap 4 caps prior to dental work 6. Systane Gel 0.3 % ophthalmic gel 1 drop four times a day (Last dose: 04/23/2016 10:06) 7. Vitamin D3 2,000 unit oral tab 1 tab daily (Last dose: 04/23/2016 10:05) 8. calcium oral 600 mg twice a day 1 tab daily (Last dose: 04/23/2016 10:05) 9. levothyroxine 137 mcg Oral tab 1 tab once daily for Hypothyroidism (Last dose: 04/23/2016 10:06) 10. Tylenol 325 mg oral tab 2 tabs every 4 hours as needed 11. acetaminophen 650 mg Rectal supp 1 suppository every 4 hours as needed 12. Milk of Magnesia Oral 10 mL daily as needed for Constipation 13. Dulcolax (bisacodyl) 10 mg Rectal supp 1 suppository daily as needed for Constipation 14. Enema Disposable 19-7 gram/118 mL rectal enem daily as needed for Constipation 15. Ascorbic Acid with Shellie Hips 500 mg oral tab 1 tab daily (Last dose: 04/23/2016 10:05) 16. aspirin 81 mg Oral TbEC 1 tab once daily for CAD (Last dose: 04/23/2016 10:05) 17. Fish Oil 1,000 mg Oral cap 1 cap daily (Last dose: 04/23/2016 10:05) 18. hydroxychloroquine 200 mg oral tab 1 tab once daily (Last dose: 04/23/2016 10:05) 19. lidocaine ointment as needed for right shoulder pain 20. lutein 6 mg oral cap twice a day (Last dose: 04/23/2016 10:05) 21. I-Joselyn 1,000 unit-200 mg-60 unit-2 mg oral tab 1 tab twice a day (Last dose: 04/23/2016 10:05) - PMHx: Cataracts; Irritable bowel syndrome; Thyroid problem; Diverticulosis; DDD L-spine with right L3 nerve root compression; - PSHx: Aortic Valve Replacement, Mechanical; Colonoscopy; Laminectomy. lumbar; Appendectomy; Tonsillectomy; trigger thumb surgery; intraocular lens; colon polypectomies; - The history from nurses notes was reviewed: and elements of the historical information I have obtained differs from that reported to nursing. - Social history: Smoking status: Patient states was never smoker of tobacco. No barriers to communication noted, The patient speaks fluent Urdu, Speaks appropriately for age. - : The pt / caregiver states he / she is not on anticoagulants. Home medication list is obtained from the facility MAR. - Hospitalizations: : No recent hospitalization is reported. - Exposure Risk Screening:: None identified. - Immunization history:: All immunizations up-to-date. - Family history: Not pertinent. - Social history:: the patient is a non-smoker, the patient does not drink alcohol. ROS: 13:52 All systems are negative except if listed. The constitutional, cardiovascular, pc respiratory and neurological components are also addressed in the HPI. Exam: 13:52 General Appearance: alert, moderate distress. pc 13:52 ENT: ear, nose and throat normal, pharynx normal. 13:52 Neck: The exam reveals no acute abnormalities. ROM is normal and painless. No nuchal rigidity is noted.. 13:52 Respiratory: no respiratory distress, normal breath sounds, chest non-tender. 13:52 Cardiovascular: regular pulse rate, regular heart rhythm, normal heart sounds, equal and full pulses bilaterally. 13:52 Abdomen: no organomegaly, no masses appreciated, no hernias palpated with/without gravity or Valsalva distended, severe tenderness in all quadrants, with rebound, voluntary guarding is not appreciated, involuntary guarding is elicited in all quadrants, bowel sounds diminished. 13:52 Back: normal inspection. 13:52 Skin: skin color is normal, warm, dry. 13:52 Extremities: The extremities have a grossly normal appearance, are non-tender. 13:52 Neuro: oriented x 3, cranial nerves normal as tested, no motor deficits, no sensory deficits. 13:52 Psych: mood is normal. Vital Signs: 13:29 BP 157 / 71 (auto/); jo3 13:30 Weight 51.71 kg / 114 lbs; Height 5 ft. 3 in. (160.02 cm); jo3 13:30 BP 157 / 71; Pulse 77; Resp 16; Temp 99.4(TE); Pulse Ox 96% on R/A; Pain 9/10; sew 13:44 Temp 97.8(O); jo3 13:44 BP 143 / 63 (auto/); jo3 13:44 Pulse 78 MON; Pulse Ox 97% ; jo3 13:59 BP 125 / 57 (auto/); jo3 13:59 Pulse 80 MON; Pulse Ox 97% ; jo3 14:29 BP 138 / 67 (auto/); jo3 14:29 Pulse 76 MON; Pulse Ox 98% ; jo3 14:44 BP 111 / 55 (auto/); jo3 14:44 Pulse Ox 98% ; jo3 14:59 BP 112 / 59 (auto/); jo3 14:59 Pulse 78 MON; Pulse Ox 98% ; jo3 15:14 BP 121 / 61 (auto/); jo3 15:14 Pulse Ox 98% ; jo3 15:29 BP 109 / 58 (auto/); jo3 15:29 Pulse 78 MON; Pulse Ox 98% ; jo3 15:44 BP 106 / 68 (auto/); jo3 15:44 Pulse 72 MON; Pulse Ox 99% ; jo3 15:59 BP 107 / 68 (auto/); jo3 15:59 Pulse 72 MON; Pulse Ox 99% ; jo3 16:14 BP 109 / 67 (auto/); jo3 16:14 Pulse 74 MON; Pulse Ox 99% ; jo3 16:29 BP 115 / 63 (auto/); jo3 16:29 Pulse 76 MON; Pulse Ox 99% ; jo3 16:44 BP 126 / 62 (auto/); jo3 16:44 Pulse 78 MON; Pulse Ox 98% ; jo3 17:14 Pulse 72 MON; Pulse Ox 98% ; jo3 17:14 BP 138 / 67 (auto/); Temp 98.1(TE); jo3 17:29 BP 121 / 56 (auto/); jo3 17:29 Pulse 72 MON; Pulse Ox 98% ; jo3 17:44 BP 108 / 57 (auto/); jo3 17:44 Pulse 72 MON; Pulse Ox 97% ; jo3 17:59 BP 103 / 58 (auto/); jo3 17:59 Pulse 74 MON; Pulse Ox 98% ; jo3 18:14 BP 101 / 56 (auto/); jo3 18:14 Pulse 72 MON; Pulse Ox 96% ; jo3 18:29 BP 106 / 55 (auto/); jo3 18:29 Pulse 76 MON; Pulse Ox 96% ; jo3 18:44 BP 110 / 62 (auto/); jo3 18:44 Pulse 78 MON; jo3 18:59 BP 109 / 60 (auto/); ko2 19:00 Pulse 78 MON; Pulse Ox 96% ; ko2 19:14 BP 110 / 58 (auto/); ko2 19:14 Pulse 78 MON; Pulse Ox 96% ; ko2 19:29 BP 156 / 69 (auto/); ko2 19:30 Pulse 84 MON; ko2 19:44 BP 144 / 52 (auto/); ko2 19:45 Pulse 76 MON; ko2 19:59 BP 131 / 63 (auto/); ko2 20:00 Pulse 70 MON; ko2 20:14 BP 120 / 59 (auto/); ko2 20:15 Pulse 72 MON; Pulse Ox 98% ; ko2 20:29 BP 122 / 56 (auto/); ko2 20:29 Pulse 74 MON; Pulse Ox 97% ; ko2 20:44 BP 115 / 55 (auto/); ko2 20:45 Pulse 78 MON; Pulse Ox 97% ; ko2 21:14 BP 130 / 62 (auto/); Pulse 82; Resp 18; Temp 98; Pulse Ox 97% ; Pain 6/10; ko2 13:30 Body Mass Index 20.19 (51.71 kg, 160.02 cm) jo3 MDM: 13:38 IV Saline Lock ordered. pc 13:39 morphine 2 mg IVP once ordered. pc 13:39 Ondansetron 4 mg IVP once ordered. pc 13:39 NS 0.9% 1000 ml IV at 100 mL/hr continuous ordered. pc 13:40 Basic Metabolic Profile Ordered. EDMS 13:40 CBC with Diff Ordered. EDMS 13:40 Lipase Ordered. EDMS 13:40 Liver Profile Ordered. EDMS 13:40 Partial Thromboplastin Time Ordered. EDMS 13:40 Prothrombin Time Profile\\E\\INR Ordered. EDMS 13:40 Abdomen, Flat\\E\\Upright,PA Chest Ordered. EDMS 13:40 Type & Screen Ordered. EDMS 13:40 NOTHING BY MOUTH+DIET ordered. EDMS 13:40 TSH with Free T4 Ordered. EDMS 13:52 Differential diagnosis: diverticulitis, perforated viscous, Peritonitis, chronic L3 pc radicular pain. Plan: labs, meds, imaging. 14:15 Ondansetron 4 mg IVP once ordered. jo3 14:21 Partial Thromboplastin Time Reviewed. pc 14:21 Prothrombin Time Profile\\E\\INR Reviewed. pc 14:21 Type & Screen Reviewed. pc 14:29 Financial registration complete. mpb 14:40 Straight cath ordered. jf3 14:40 Bladder Scan please ordered. jf3 15:02 Basic Metabolic Profile Reviewed. pc 15:02 CBC with Diff Reviewed. pc 15:02 Liver Profile Reviewed. pc 15:02 TSH with Free T4 Reviewed. pc 15:02 Lipase Reviewed. pc 15:02 Type & Screen Reviewed. pc 15:03 Piperacillin-Tazobactam 3.375 grams IVPB once over 30 mins; dilute in 50mL of NS or D5W pc ordered. 15:03 morphine 2 mg IVP every 15 minutes; Document pain score/vitals after each dose (Hold if pc SBP < 90mmHg) x3 ordered. 15:05 CT ABD & PELVIS: IV and Oral Contrast Ordered. EDTN 15:05 [facility] [place] Payment Agreement was scanned into [employer] and attached to record. mpb 15:27 Diatrizoate Meglumine & Sodium Liquid 10 ml PO once; mix in 290cc of water ordered. jo3 15:27 Diatrizoate Meglumine & Sodium Liquid 10 ml PO once; mix in 290cc of water ordered. jo3 17:04 Ondansetron 4 mg IVP once ordered. pc 17:41 [place] ordered. ld5 17:44 Data reviewed: old medical records, vital signs, nurses notes, lab test results, all radiology studies and available results. Test interpretation: LAB - all labs as ordered have been reviewed, interpreted and considered in the overall management of the clinical presentation; X-RAY - interpreted by Radiologist and personally reviewed, 3-view abdomen series; no acute disease, interpreted by Radiologist and personally reviewed, discussed with Radiologist, Abdomen/Pelvis CT; severe constipation, diverticulosis without evidence of diverticulitis, calcified gallstones, possible portal hypertension, fatty liver. The patient has been re-examined and re-evaluated. The patient's symptoms have mildly improved after treatment. 18:41 Physician consultation: Dr. Stevan Melendez MD regarding consult, and will see patient in ED. 18:41 Physician consultation: Dr. Rae Rasmussen was contacted at 18:42, regarding pc admission, and will see patient in ED, shortly. Disposition: The historical points, examination findings, and any diagnostic results supporting the provided diagnosis, were discussed with the patient or legal guardian. The need for further work-up and/or treatment in the hospital was explained. 20:36 Admission / Observation Status ordered. EDMS 20:36 CLEAR LIQUIDS DIET ordered. EDMS 20:37 CBC WITH DIFFERENTIAL Ordered. EDMS 20:37 COMPLETE COMPHRENSIVE METABOLI Ordered. EDMS 20:37 MAGNESIUM LEVEL Ordered. EDMS Administered Medications: 04:00 Drug: Ondansetron 4 mg [ondansetron HCl 2 mg/mL intravenous solution (2 mL)] Route: jo3 IVP; Site: right forearm; 14:00 Drug: NS 0.9% 1000 ml [sodium chloride 0.9 % intravenous solution] Route: IV; Rate: 100 jo3 mL/hr; Site: right forearm; 14:02 Drug: morphine 2 mg [morphine 2 mg/mL intravenous cartridge (1 mL)] Route: IVP; Site: jo3 right forearm; 15:20 Drug: Piperacillin-Tazobactam 3.375 grams [piperacillin-tazobactam 3.375 gram jo3 intravenous solution] Route: IVPB; Infused Over: 30 mins; Site: right forearm; 16:20 Follow up: IV Status: Completed infusion jo3 15:25 Drug: Diatrizoate Meglumine & Sodium 10 ml [diatrizoate meglumine and diat.sodium 66 jo3 %-10 % oral solution (10 mL)] Route: PO; 15:28 Drug: morphine 2 mg [morphine 2 mg/mL intravenous cartridge (1 mL)] Route: IVP; Site: jo3 right forearm; 16:00 Drug: Diatrizoate Meglumine & Sodium 10 ml [diatrizoate meglumine and diat.sodium 66 ld5 %-10 % oral solution (10 mL)] Route: PO; 17:18 Drug: morphine 2 mg [morphine 2 mg/mL intravenous cartridge (1 mL)] Route: IVP; Site: ld5 right wrist; 17:18 Drug: Ondansetron 4 mg [ondansetron HCl 2 mg/mL intravenous solution (2 mL)] Route: ld5 IVP; Site: right wrist; Signatures: Dispatcher [employer] EDMS Aung Scott, MD MD pc Linares, Peggy Yu, RN RN Zoraida Burns,RN RN [id number] Ani ChávezRN RN [id number] Suni Mccormick RN RN Vasu Caldera,RN RN jf3 Jack Weber, Tariq Reg mpb The chart was reviewed and I authenticate all verbal orders and agree with the evaluation and treatment provided.Attachments: 15:05 [facility] Payment Agreement mpb Chart Complete MTDD
== END 2016-04-24 13:55 ==
LOC: M ED 13:10 → M ED INP 20:24 → M PCU 22:21
PROVIDERS: ADMIT Hospitalist; ATTEND Internal Medicine
DX: K58.1 Irritable bowel syndrome with constipation (principal); E03.9 Hypothyroidism, unspecified; M06.9 Rheumatoid arthritis, unspecified; F03.90 Unspecified dementia, unspecified severity, without behavioral disturbance, psychotic disturbance, mood disturbance, and anxiety; Z95.2 Presence of prosthetic heart valve; Z79.82 Long term (current) use of aspirin; Z79.899 Other long term (current) drug therapy
CPT/HCPCS: 36415; 51702; 74022; 74177; 80048; 80053; 80076; 83690; 83735; 84439; 84443; 85025; 85610; 85730; 86850; 86900; 86901; 99285; G0378; J2405; J2543; Q9963; Q9967

== ENCOUNTER → 2016-07-18 | Outpatient (REF) | payer MEDICARE, MEDICAID ==
[~2016-07-18] MED LIST changes: +ACET650S3 PR; +AMOX500C PO; +APAP325T PO; +DULC10SU2 PR; +ENEMENE6 PR; +LEVO137T2 PO; +LORT5TAB PO; +MILKSUS PO; +PROC5TA PO; +REST0.05 OU; +SYST1SOL OU; +SYSTSOL14 OP; +SYSTSOL14 OS; -SYSTSOL8 OP; -SYSTSOL8 OS; +VITA200016 PO
--- NOTE | 2016-07-18 12:47 | REP ---
KUB ABDOMEN: KUB film of the abdomen and pelvis is performed. I do not see a significant small bowel distention, with no definite radiographic evidence of obstruction. Calcifications in the lower pelvis are unchanged since the prior study of 04/13/2011. There are degenerative changes of the spine. There is a compression deformity of the L1 vertebral body. Metallic screws are seen in the proximal right femur. IMPRESSION: No evidence of bowel obstruction. Compression deformity of L1 vertebral body. Signed by Mazin Vu MD 07/18/2016 04:39 P
== END ==
LOC: SKLAB2 11:30
PROVIDERS: ATTEND Family Medicine
DX: R14.0 Abdominal distension (gaseous) (principal)

== ENCOUNTER → 2016-08-10 | Outpatient (REF) | payer MEDICARE, MEDICAID ==
[2016-08-10 08:53] LABS: ANION GAP 7 MEQ/L (8-16); BLOOD UREA NITROGEN 23 MG/DL (7-18); CALCIUM LEVEL 8.6 MG/DL (8.8-10.2); CARBON DIOXIDE LEVEL 27 MEQ/L (21-32); CHLORIDE LEVEL 105 MEQ/L (98-107); CREATININE FOR GFR 0.68 MG/DL (0.55-1.02); GLOMERULAR FILTRATION RATE > 60.0 (>32); GLUCOSE, FASTING 111 MG/DL (83-110); POTASSIUM SERUM 4.5 MEQ/L (3.5-5.1); SODIUM LEVEL 139 MEQ/L (136-145)
== END ==
LOC: SKLAB2 08:34
PROVIDERS: ATTEND Family Medicine
DX: I10 Essential (primary) hypertension (principal)